=== PATIENT | male | born 1955 | race Caucasian/White ===

== ENCOUNTER 2017-08-29 06:57 | Day surgery (SDC) | payer OTHER ==
[2017-08-28 08:26] VITALS: BMI 24.4
[2017-08-29] MEDS ORDERED: CEFAZOLIN/Water 2 GM/20 ML SYRINGE ONE (07:19)
[2017-08-29 07:38] LABS: Hemoglobin 15.4 g/dL (14.0-18.0); Mean Corpuscular HGB CONC 32.8 g/dL (32.0-36.0); Mean Corpuscular Hemoglobin 31.4 pg (27.0-31.0); Mean Corpuscular Volume 95.8 fl (80.0-94.0); Mean Platelet Volume 7.6 fL (7.4-10.4); Platelet Count 218 thou/uL (130-400); Red Blood Cell (RBC) Count 4.89 mill/uL (4.70-6.10); White Blood Cell (WBC) Count 5.2 thou/uL (4.8-10.8)
[2017-08-29 07:53] LABS: Anion Gap 12 mmol/L (10-20); BUN (Urea Nitrogen) 14 mg/dL (8.4-25.7); Calc. Creatinine Clearance 108 mL/min (70-130); Calcium 9.1 mg/dL (7.8-10.44); Carbon Dioxide 25 mmol/L (22-29); Chloride 106 mmol/L (98-107); Estimated GFR-MDRD Greater than 90; Glucose 101 mg/dL (70-105); Potassium 4.1 mmol/L (3.5-5.1); Sodium 139 mmol/L (136-145)
[2017-08-29 07:55] LABS: Band 2 % (5-11); Eosinophils 5 % (0-10); Lymphocytes 24 % (21-51); MDiff Complete? YES; Monocytes 10 % (0-10); Neutrophil 54 % (42-75); RBC Morphology Normal; Reactive Lymphocytes 5 % (0-10)
[2017-08-29] MEDS ORDERED: Lidocaine 1% w/Epinephrine 1:200K 30 ML VIAL ONE (08:20)
[2017-08-29] MEDS ORDERED: Bupivacaine/Epinephrine 0.25% 30 ML VIAL ONE (08:20)
[2017-08-29] MEDS ORDERED: Midazolam HCl 2 mg/2 ml Vial ONE (08:20)
[2017-08-29] MEDS ORDERED: Fentanyl 100 MCG/2 ML VIAL ONE (08:31)
[2017-08-29] MEDS ORDERED: Ondansetron HCl/PF 4 MG/2 ML Vial ONE (13:59)
[2017-08-29] MEDS ORDERED: Dexamethasone 20 MG/5 ML VIAL ONE (13:59)
[2017-08-29] MEDS ORDERED: Ketorolac Tromethamine 30 MG/ML VIAL ONE (13:59)
[2017-08-29] MEDS ORDERED: PROPOFOL 200 MG/20 ML VIAL ONE (13:59)
--- NOTE | 2017-08-29 14:17 | EKG ---
Test Reason : PREOP Blood Pressure : / mmHG Vent. Rate : 071 BPM Atrial Rate : 071 BPM P-R Int : 136 ms QRS Dur : 088 ms QT Int : 400 ms P-R-T Axes : 002 065 056 degrees QTc Int : 434 ms Normal sinus rhythm Normal ECG When compared with ECG of 10-DEC-2012 10:17, No significant change was found Confirmed by DR. Natalie HORTA (3) on 08/29/2017 2:17:07 PM Referred By: ALYSSA Confirmed By:DR. Natalie HORTA
--- NOTE | 2017-08-29 18:50 | OP ---
DATE OF PROCEDURE: 08/29/2017 PREOPERATIVE DIAGNOSES: 1. Right carpal tunnel. 2. Right cubital tunnel. PROCEDURES PERFORMED: 1. Right open carpal tunnel release. 2. Right open carpal tunnel release. 3. Long arm splint. STAFF: Tanvir Guzman M.D. HEALTH EVALUATOR: None. ANESTHESIA: Dr. Dowd. The patient received a LMA. ESTIMATED BLOOD LOSS: Less than 20 mL TOURNIQUET TIME: 46 minutes at 250 mmHg. ANTIBIOTICS: Ancef 2 grams. IMPLANTS: None. COMPLICATIONS: None. HISTORY OF PRESENT ILLNESS: Mr. Ayala is a pleasant 62-year-old male presented to me with positive nerve conduction studies for cubital tunnel and numbness treating was last 3 fingers. 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 I discussed with patient the risks and benefits of right cubital tunnel, right carpal tunnel release to include pain, scar, bleeding, infection, damage to vital struc tures, decreased range of motion or strength, failure of procedure, continued pain despite surgical i ntervention. The patient understood these risks and benefits and elected to proceed. PROCEDURE NOTE: Time-out was performed designating the patient's right upper extremity as the operat kenneth site based on sight, consents, markings. At completion of timeout, the patient's right upper ext remity was prepped and draped in sterile fashion. Tourniquet was brought up and was left up for a to ludivina of 46 minutes. I began with my carpal tunnel incision and made an incision at radial aspect of f ourth ray from Morel's cardinal line distal and proximal down through skin and came into the palmar fascia, which was split and came into the fat, followed by the palmaris brevis, which was transected. We used hemostat and free of the nerve and sharp dissection and hemostat to protect the nerve and t ransected the transverse carpal ligament, sure there was complete release proximally and distally for the nerve to be completely decompressed. We then washed. We closed with 4-0 nylon horizontal mattr ess sutures. We then injected 10 mL of lidocaine 1% with epinephrine into the tunnel to help with pa in relief post-procedure. We then moved to the patient's elbow, made an incision on the medial aspec t, posterior elbow down through skin and found the triceps, isolated the ulnar nerve, dissected aroun d the ulnar nerve to complete its release, placed vessel loop to control the nerve, moved proximally to ensure the was freed completely; I noticed tenting of the intermuscular septum, which we rel eased to ensured no . I felt the nerve all the way up it is proximal arm, saw no other need for release. I then moved distally unroofed Butler and transected Butler's ligament and moved over an d opened the fascial band, opened the flexor carpi ulnaris muscle head. I did not cut any branches o ff the nerve distally, but open to ensured the release of the nerve distally. I then felt like it wa s freely released using 0 to take a portion of the Butler's ligament to sew the undersurface of the skin to help act as a sling. I then sewed subcu with 2-0 and 3-0 nylon. The patient was placed in a soft tissue dressing and long posterior arm splint. The patient will follow up with me in 10-14 days. The patient will follow up with me with splint in 1 week, begin range of motion of elbow, wrist, and hand. The patient will be wear his carpal tunnel splint. The patient will take hydrocodone as needed for pain.
== END 2017-08-29 08:15 | disposition home or self-care (01) ==
LOC: SDC 06:57
PROVIDERS: ATTEND Orthopaedic Surgery
PROC: 01N40ZZ Release Ulnar Nerve, Open Approach (ICD-10-PCS; principal; 2017-08-29)
PROC: 01N50ZZ Release Median Nerve, Open Approach (ICD-10-PCS; principal; 2017-08-29)
DX: G56.01 Carpal tunnel syndrome, right upper limb (principal); G56.21 Lesion of ulnar nerve, right upper limb; K21.9 Gastro-esophageal reflux disease without esophagitis; Z79.1 Long term (current) use of non-steroidal anti-inflammatories (NSAID); Z98.52 Vasectomy status; Z90.89 Acquired absence of other organs; Z98.890 Other specified postprocedural states
CPT/HCPCS: 36415; 80048; 85025; 93005; 93010; J1100; J1885; J2250; J2405; J2704; J3010

== ENCOUNTER 2017-12-04 08:57 | Outpatient (CLI) | payer OTHER ==
--- NOTE | 2017-12-04 12:03 | MRI ---
MRI LUMBAR SPINE WITHOUT CONTRAST: HISTORY: Lumbar radiculopathy. Left-sided sciatic pain radiating down the left leg. Symptoms intermittent fo r a few years. COMPARISON: None. TECHNIQUE: A lumbar spine MRI is performed without intravenous Gadolinium administration. Multisequential, mult iplanar imaging is performed. FINDINGS: Appropriate T1 marrow signal intensity of the lumbar vertebrae. Lumbar spine vertebral body height i s maintained. No fracture. No significant STIR hyperintensity to suggest edema or ligamentous injur y. There is 3 mm of anterolisthesis of L4 upon L5. Symmetric signal intensity of the psoas muscles. Appropriate signal intensity of the visualized lilly d organs. The conus medullaris terminates at the inferior endplate of L1. T12-L1: Adequate disk hydration. No significant central canal stenosis. The foramina are patent. L1-L2: Adequate disk hydration. No significant central canal stenosis or foraminal narrowing. L2-L3: Adequate disk hydration. No significant central canal stenosis. The foramina are patent. L3-L4: Adequate disk hydration. No significant posterior disk abnormality. No significant central canal stenosis. The neural foramina are patent. There is mild facet hypertrophy with fluid in both intraarticular facet joints. L4-L5: Desiccation with mild loss of disk space height. There is a generalized disk bulge, ligament um flavum thickening, and facet hypertrophy. There is resultant moderate central canal stenosis. Th ere is fluid in both intraarticular facet joints. Mild to moderate bilateral neural foraminal narrow ing. There is a 0.9 cm T2 hyperintense focus adjacent to the left intraarticular facet joint, compat ible with a synovial cyst. This synovial cyst causes mass effect and displacement of the traversing left L5 and S1 nerve roots. L5-S1: Desiccation with severe loss of disk space height. No significant stenosis of the thecal sac . Disk material encroaches upon both subarticular zones, left greater than right. Partial obscurati on of the traversing left S1 nerve root. No significant mass effect upon the traversing right S1 ner ve root. Moderate bilateral foraminal narrowing. Nonspecific T2 hyperintensity to the posterior right aspect of the L5 spinous process. IMPRESSION: 1. Degenerative changes of the lumbar spine, as above. 2. Synovial cyst at L4-L5, causing mass effect upon the traversing left L5 and S1 nerve roots. POS: SAMANTHA
--- NOTE | 2017-12-04 12:51 | CT ---
CT LUMBAR SPINE WITHOUT CONTRAST: HISTORY: Lumbar radiculopathy. Left sciatic pain. TECHNIQUE: Multiple axial tomograms obtained through the lumbar spine with multiplanar reconstruction. FINDINGS: The lumbar vertebrae maintain normal height and alignment. No evidence of spondylolisthesis or spond ylosis. Degenerative disk changes are seen at L4-L5 with gas in the disk space consistent with vacuu m phenomenon. There is loss of disk space at L5-S1. Mild degenerative osteophytes are seen, most pr ominent at L4-L5 and at L5-S1. At L1-L2, no disk bulge or protrusion. No central canal or foraminal stenosis. At L2-L3, mild diffuse disk bulge flattens the thecal sac. Mild facet arthrosis. Mild central canal stenosis. At L3-L4, mild diffuse disk bulge. Mild facet hypertrophy. Mild to moderate central canal stenosis. At L4-L5, loss of disk space with degenerative disk change. Diffuse disk bulge. Facet hypertrophy i s prominent. There is evidence of a posterior laminectomy on the right. These hypertrophic changes and disk bulge result in severe central canal stenosis. Bilateral foraminal narrowing due to the bro ad-based disk bulge and facet hypertrophy. At L5-S1, loss of disk space. Mild disk bulge. Mild central canal stenosis. Bilateral foraminal na rrowing due to facet hypertrophy and spurring from the L5-S1 vertebra. IMPRESSION: 1. Degenerative disk changes at multiple levels, as described above. 2. Severe central canal stenosis at L4-L5, as described. POS: SAMANTHA
== END 2017-12-04 08:58 | disposition home or self-care (01) ==
LOC: TBSIIMAG 08:57
PROVIDERS: ATTEND Surgery
DX: M47.26 Other spondylosis with radiculopathy, lumbar region (principal); M48.061 Spinal stenosis, lumbar region without neurogenic claudication; M71.38 Other bursal cyst, other site
CPT/HCPCS: 72131; 72148

== ENCOUNTER 2017-12-31 06:12 | Inpatient (IN) | payer OTHER ==
[2017-12-30 09:43] VITALS: BMI 25.7
[2017-12-31] MEDS ORDERED: Thrombin 5000 UNITS/5 ML VIAL ONE ×2 (06:27→11:11)
[2017-12-31] MEDS ORDERED: Sodium Chloride 0.9% 10 ML ONE (06:27)
[2017-12-31] MEDS ORDERED: Bacitracin Zinc Ointment 30 gm TUBE ONE (06:27)
[2017-12-31] MEDS ORDERED: Fentanyl 100 MCG/2 ML VIAL ONE ×3 (06:39→13:24)
[2017-12-31 07:09] LABS: Hemoglobin 14.8 g/dL (14.0-18.0); Mean Corpuscular HGB CONC 33.4 g/dL (32.0-36.0); Mean Corpuscular Hemoglobin 31.4 pg (27.0-31.0); Mean Corpuscular Volume 93.8 fl (80.0-94.0); Mean Platelet Volume 7.3 fL (7.4-10.4); Platelet Count 226 thou/uL (130-400); White Blood Cell (WBC) Count 5.3 thou/uL (4.8-10.8)
[2017-12-31] MEDS ORDERED: Phenylephrine HCL 10 MG/ML VIAL ONE (07:14)
[2017-12-31] MEDS ORDERED: Famotidine/PF 20 mg/2ml Vial ONE (07:14)
[2017-12-31 07:17] LABS: Prothrombin Time 13.4 SEC (12.0-14.7)
[2017-12-31 07:18] LABS: PTT 28.3 SEC (22.9-36.1)
[2017-12-31] MEDS ORDERED: Midazolam HCl 2 mg/2 ml Vial ONE (07:24)
[2017-12-31] MEDS ORDERED: CEFAZOLIN/Water 2 GM/20 ML SYRINGE ONE (07:24)
[2017-12-31 07:30] LABS: Anion Gap 12 mmol/L (10-20); BUN (Urea Nitrogen) 15 mg/dL (8.4-25.7); Calc. Creatinine Clearance 114 mL/min (70-130); Calcium 8.8 mg/dL (7.8-10.44); Carbon Dioxide 22 mmol/L (22-29); Chloride 107 mmol/L (98-107); Estimated GFR-MDRD Greater than 90; Glucose 95 mg/dL (70-105); Potassium 3.9 mmol/L (3.5-5.1); Sodium 137 mmol/L (136-145)
[2017-12-31] MEDS ORDERED: Ondansetron HCl/PF 4 MG/2 ML Vial ONE ×2 (11:08→16:26)
[2017-12-31] MEDS ORDERED: Promethazine HCl 25 MG/ML VIAL IM PRN ×2 (11:23→12:48)
[2017-12-31] MEDS ORDERED: Promethazine HCl 25 MG/ML VIAL SLOW IVP PRN (11:23)
[2017-12-31] MEDS ORDERED: Ondansetron HCl/PF 4 MG/2 ML Vial IVP PRN (11:23)
[2017-12-31] MEDS ORDERED: Meperidine HCl/PF 25 MG/ML VIAL SLOW IVP PRN (11:23)
[2017-12-31] MEDS ORDERED: Morphine Sulfate 2 MG/ML SYRINGE SLOW IVP PRN (11:23)
[2017-12-31] MEDS ORDERED: HYDROmorphone 2 MG/ML VIAL SLOW IVP PRN (11:23)
[2017-12-31] MEDS ORDERED: HYDROmorphone 0.5 MG/0.5 ML SYRINGE ONE ×3 (12:01→13:07)
[2017-12-31] MEDS ORDERED: Mag-Al 1200 mg/1200 mg/30 ML UDCUP PO PRN (12:48)
[2017-12-31] MEDS ORDERED: HYDROcodone/Acetaminophen 7.5/325 mg Tablet PO PRN (12:48)
[2017-12-31] MEDS ORDERED: Bisacodyl 10 MG SUPP PR PRN (12:48)
[2017-12-31] MEDS ORDERED: Acetaminophen 325 MG TAB PO PRN (12:48)
[2017-12-31] MEDS ORDERED: Fleet Enema 133 ML BOT PR PRN (12:48)
[2017-12-31] MEDS ORDERED: Milk Of Magnesia 30 ML UDCUP PO PRN (12:48)
[2017-12-31] MEDS: Sodium Chloride 0.9% 1,000 ML IV SCH (15:32)
[2017-12-31] MEDS: tiZANidine HCl 4 MG TAB PO PRN (16:00)
[2017-12-31] MEDS: traMADol HCl 50 MG TAB PO PRN (16:00)
[2017-12-31] MEDS: CEFAZOLIN/Water 2 GM/20 ML SYRINGE SLOW IVP SCH (16:01)
[2017-12-31] MEDS ORDERED: Lidocaine 1% PF 5 ML VIAL ONE ×2 (16:26)
[2017-12-31] MEDS ORDERED: PROPOFOL 200 MG/20 ML VIAL ONE (16:26)
[2017-12-31] MEDS ORDERED: PHENYLEPHRINE-NS 100 MCG/ML 10 ML SYRINGE ONE (16:26)
--- NOTE | 2017-12-31 16:27 | EKG ---
Test Reason : PREOP Blood Pressure : / mmHG Vent. Rate : 059 BPM Atrial Rate : 059 BPM P-R Int : 158 ms QRS Dur : 094 ms QT Int : 428 ms P-R-T Axes : 062 069 046 degrees QTc Int : 423 ms Sinus bradycardia Otherwise normal ECG When compared with ECG of 29-AUG-2017 07:23, No significant change was found Confirmed by DR. Natalie HORTA (3) on 12/31/2017 4:27:04 PM Referred By: ADRIANA Confirmed By:DR. Natalie HORTA
--- NOTE | 2017-12-31 16:37 | OP ---
LOCATION: OR 12. TYPE 1 WOUND. SURGEON: Lalito Basurto M.D. PAINT ROLLER WINDER: Zen Mckeon PA-C. PREPROCEDURE DIAGNOSIS: Grade I spondylolisthesis with history of right L4-L5 synovial cyst, resecti on and foraminotomy, now with left L4-L5 synovial cyst with low back and leg pain. PROCEDURES: 1. Left L4-L5 synovial cyst resection. 2. Revision of right L4-L5 decompression with diskectomy and interbody graft placement for arthrodes is with placement of PEEK spacer packed with local bone autograft obtained on same incision and BMP. 3. Screw raul fixation at L4-L5 bilaterally for stabilization. 4. Posterolateral fusion bilaterally L4-L5 with local bone autograft obtained on same incision, BMP and demineralized bone matrix. DESCRIPTION OF PROCEDURE: After informed consent was obtained from the patient, the patient brought to OR 12. Proper patient pause and identification was carried out. He was placed under excellent ge neral endotracheal anesthesia and positioned prone on the operating table. All appropriate points we re padded. We identified the L4-L5 segment, the prior wound, this was slightly eccentric to the righ t. This region was sterilely cleansed, prepared, and draped. Proper patient pause and identificatio n was carried out. The wound was then opened with a combination of sharp, monopolar and blunt dissec tion. The L4-L5 segments were exposed along with the scarred region in the right L4-L5 segment from the prior surgery. The transverse processes and facet complexes were also exposed and we were please d with our exposure at that point. Localization film confirmed our area of interest. We then perfor med a L4-L5 decompression with removal of the left L4-L5 synovial cyst and assured freedom of the lef t L4 and left L5 nerve roots. We then turned our attention to the right L4-L5 segment, identified sc ar tissue. Right L4-L5 segment was decompressed and disk material identified. The disk was then rem ermelinda and careful protection of the dural tube allowed for entry into the disk space. A diskectomy wa s performed and using a series of curettes and rongeurs were exposed the endplates at the inferior L4 and the superior endplate of L5. An interbody spacer of appropriate dimension was placed, packed wi th BMP and local bone autograft obtained from same incision, and this was for arthrodesis. We then t urned our attention to placement of screw arul fixation and pedicle screws at L4 and L5 were placed wi th satisfactory purchase of the bone, both fluoroscopy and spin CT demonstrates satisfactory placemen t of the hardware and interbody spacer. Rods were then placed and final tightening occurred. The wo und was then copiously irrigated. DuraSeal was placed over the dural tube to protect it from many ir ritations from the fusion process. Hemostasis was maximized throughout. Decortication in the transv erse processes also occurred for arthrodesis in the posterior lateral regions. BMP and local bone au tograft along with demineralized bone matrix was all placed out laterally in the posterior lateral gu tters to augment the fusion process. Rods again will be placed. Cap screws placed and final tighten ing occurred. The wound was then closed following meticulous hemostasis throughout and it was closed in anatomic layers following the sprinkling of vancomycin powder. The patient then emerged from ane sthesia.
[2017-12-31] MEDS: Morphine 4 MG/ML VIAL SLOW IVP PRN ×3 (17:02→21:12)
[2017-12-31] MEDS: Acetaminophen/Codeine 30-300mg Tablet PO PRN ×2 (18:09→21:28)
[2018-01-01] MEDS: Acetaminophen/Codeine 30-300mg Tablet PO PRN ×7 (00:08→21:10)
[2018-01-01] MEDS: Morphine 4 MG/ML VIAL SLOW IVP PRN ×3 (00:09→08:01)
[2018-01-01] MEDS: CEFAZOLIN/Water 2 GM/20 ML SYRINGE SLOW IVP SCH ×3 (00:10→16:03)
[2018-01-01] MEDS: Sodium Chloride 0.9% 1,000 ML IV SCH ×2 (02:41→17:45)
[2018-01-01] MEDS: tiZANidine HCl 4 MG TAB PO PRN ×4 (03:29→22:01)
[2018-01-01] MEDS ORDERED: Tamsulosin HCl 0.4 MG CAP PO SCH (10:15)
--- NOTE | 2018-01-01 19:42 | PRG ---
DATE OF SERVICE: 01/01/2018 Zen Mckeon PA-C dictating for Dr. Lalito Basurto. POSTOPERATIVE RECHECK Mr. Ayala is now postoperative day #1 having undergone L4-L5 posterior lumbar laminectomy and poste rior fusion with interbody graft. The patient's only complaint today is the back pain. He does note , however, he got up more than 6 times last night, which may have increased his back pain. He has no bilateral lower extremity symptoms including complete resolution of his pain. He has been compliant in wearing his LSO brace when he is out of bed. He has had some difficulty with urinary retention, so we will order Flomax. I have also changed his pain medication from [place] to Tylenol No. 3 as he s tates that this causes less drowsiness. He has good strength in the bilateral lower extremities and walks with a non-antalgic gait. He has intact sensation to light touch throughout. Right now, we wi ll continue to monitor the patient's back pain, although I suspect that he has overdone his activity postoperatively. Hopefully, he will be ready for discharge tomorrow. We will continue to monitor the patient's postoperative symptoms, although likely he will be ready fo r discharge tomorrow. Again, I suspect that his postoperative pain is due to overactivity and both t he patient and his are pleased with his outcome at this time.
[2018-01-02] MEDS: Acetaminophen/Codeine 30-300mg Tablet PO PRN ×2 (00:04→03:05)
[2018-01-02] MEDS: traMADol HCl 50 MG TAB PO PRN (04:12)
[2018-01-02] MEDS: tiZANidine HCl 4 MG TAB PO PRN (04:12)
[2018-01-02] MEDS: Sodium Chloride 0.9% 1,000 ML IV SCH (05:07)
[2018-01-02 08:48] VITALS: BP 108/72; TEMP 98.1
--- NOTE | 2018-01-02 17:44 | DIS ---
DATE OF ADMISSION: 12/31/2017 DATE OF DISCHARGE: 01/02/2018 DISCHARGE DIAGNOSES: 1. Lumbar spondylolisthesis. 2. Lumbar stenosis. 3. Lumbar radiculopathy. 4. Tobacco abuse. HOSPITAL COURSE: Mr. Ayala was admitted on 12/31/2017 to undergo an L4-L5 laminectomy with posteri or lumbar interbody graft and fusion. The patient tolerated the procedure well and his surgery was w ithout complication. He recovered on the surgical floor for 2 overnight stays. His only complaint w as low back pain at the incision site, though does note may be too much activity postoperatively. He did have some slowed stream of urine and was given Flomax, so he stated this did not improve signifi cantly, although he was having difficulty with this preoperatively. At the physical exam at the time of discharge, the patient had full strength in the bilateral lower extremities with intact sensation to light touch throughout. He walks with a non-antalgic gait. He was in a well-fitting LSO brace. Appropriate prescriptions were given to the patient. Appropriate patient education and postoperativ e followup information was also given to the patient. At the time of discharge, the patient was very pleased with his outcome postoperatively and doing well. He understood to call the office with michellet ivett doran prior to his next followup appointment.
== END 2018-01-02 10:52 | disposition home or self-care (01) | DRG 455 ==
LOC: SURG A 06:12
PROVIDERS: ADMIT Surgery; ATTEND Surgery
PROC: 0SG00AJ Fusion of Lumbar Vertebral Joint with Interbody Fusion Device, Posterior Approach, Anterior Column, Open Approach (ICD-10-PCS; principal; 2017-12-31)
PROC: 0SG0071 Fusion of Lumbar Vertebral Joint with Autologous Tissue Substitute, Posterior Approach, Posterior Column, Open Approach (ICD-10-PCS; 2017-12-31)
PROC: 0ST20ZZ Resection of Lumbar Vertebral Disc, Open Approach (ICD-10-PCS; 2017-12-31)
PROC: 0SB00ZZ Excision of Lumbar Vertebral Joint, Open Approach (ICD-10-PCS; 2017-12-31)
DX: M48.061 Spinal stenosis, lumbar region without neurogenic claudication (principal); M43.16 Spondylolisthesis, lumbar region; M71.30 Other bursal cyst, unspecified site; M54.16 Radiculopathy, lumbar region; F17.210 Nicotine dependence, cigarettes, uncomplicated; M71.38 Other bursal cyst, other site
CPT/HCPCS: 36415; 76001; 80048; 85027; 85610; 85730; 93005; 93010; A4216; C1713; C1768; G8978-GP-CI; G8979-GP-CI; G8980-GP-CI; J0131; J1170; J2001; J2250; J2270; J2370; J2405; J2704; J3010; J3370; J3490; S0028

== ENCOUNTER 2018-01-04 13:31 | Emergency (ER) | payer OTHER ==
--- NOTE | 2018-01-04 15:14 | ULT ---
RIGHT LOWER EXTREMITY VENOUS DUPLEX EXAM: Date: 01/04/18 Ultrasound and color Doppler with spectral analysis and compression studies performed on the veins of the right lower extremity. INDICATION: Right lower extremity pain and edema. FINDINGS: Veins of the right lower extremity show normal blood flow and compression. No evidence of deep venous thrombosis. IMPRESSION: Negative right lower extremity venous duplex study. POS: ANTON
--- NOTE | 2018-01-04 23:46 | CON ---
DATE OF CONSULTATION: 01/04/2018 Zen Mckeon PA-C, dictating for Lalito Basurto M.D. This is a 30-minute initial patient consult, in which greater than 50% of the exam was spent in couns eling and coordinating patient's care. Remainder of the exam was spent in review of patient's medica l records and appropriate studies. HISTORY OF PRESENT ILLNESS: Mr. Ayala is now postoperative day #4, having undergone L4-L5 posterio r lumbar fusion with interbody grafting. The patient was experiencing fever around 105 degrees [place] nheit and presented to his primary care office today. He was also complaining of some leg swelling, though states he has had no increased pain at his incision site or radicular pain into the legs. He states the fever had been going on since last night and that he has been doing quite a bit of walking . His has noticed some drainage on the bandage that she changes daily. Otherwise, the patient denies any tenderness to palpation at the incision site or any difficulty or any increased pain. He states overall he is feeling good and has been able to walk quite a bit with his LSO brace. His main concern today is swelling into the legs. PHYSICAL EXAMINATION: The patient is awake, alert, and appropriate. He does not appear to be septic in any way. His GCS currently is 15. He has excellent strength in all his extremities. He has a m inor amount of trace swelling into the bilateral lower extremities. He has no surrounding erythema a nd no tenderness to palpation into the bilateral legs throughout. His incision is clean, dry, intact and covered with the dressing. When uncovered, there is no active drainage. There does not appear to be any surrounding erythema. There is no odor to the incision a nd there is no color to the dressing that is on the bandage that was examined by me when the EMS prov iders change his dressing. There does not appear to be any extra swelling, or signs of infection, ob vious infection at this point. IMPRESSION AND DIAGNOSES: 1. Bilateral lower extremity leg swelling. 2. Status post L4-L5 posterior lumbar interbody fusion with Dr. Basurto 4 days ago. PLAN: I discussed the patient's case with Dr. Basurto. At this time, we will have the ER order an ul trasound of bilateral lower extremities to make sure the patient does not have any bilateral DVTs. T he most common cause postoperative fever is atelectasis and I have asked the ER to provide the patien t with incentive spirometer that he may use this while he is at home. I have warned him not to overd o his activity, but to continue to wear his brace and continued to keep the incision covered. He may cover at night as well, but I have relayed to him that I do not in any way suspect that his incision is infected. Again, this was also discussed with Dr. Basurto and we are okay with discharge home fro m the ER with a follow up in our clinic as scheduled. Ample opportunity was given to the patient to discuss his questions and concerns and he was pleased with the workup at this time. It should be noted that the ultrasound of the bilateral lower extremities was negative and therefore we will send the patient home from the ER with continue follow up in our office.
== END 2018-01-04 15:18 | disposition home or self-care (01) ==
LOC: ERS 13:31
DX: M96.89 Other intraoperative and postprocedural complications and disorders of the musculoskeletal system (principal); K21.9 Gastro-esophageal reflux disease without esophagitis; F17.220 Nicotine dependence, chewing tobacco, uncomplicated; Z79.899 Other long term (current) drug therapy
CPT/HCPCS: 93970

== ENCOUNTER 2018-02-12 09:01 | Outpatient (CLI) | payer OTHER ==
--- NOTE | 2018-02-12 10:15 | RAD ---
LUMBAR SPINE SERIES TWO VIEWS: History: Low back pain. FINDINGS: Vertebral bodies are normal in height. There is marked disc narrowing at L5-S1. Bilateral pedicle scr ews have been placed at L4-5 with laminectomy change. Markers of the disc implant are in the confines of the disc level. The bones are demineralized. IMPRESSION: Arthritic changes and post op changes of the spine. POS: SAMANTHA
== END 2018-02-12 09:02 | disposition home or self-care (01) ==
LOC: TBSIIMAG 09:01
DX: M54.5 Low back pain (principal); M47.896 Other spondylosis, lumbar region; Z98.890 Other specified postprocedural states
CPT/HCPCS: 72100

== ENCOUNTER 2018-05-06 09:37 | Outpatient (CLI) | payer OTHER ==
[2018-05-06 10:24] LABS: Estimated GFR-MDRD - POC Greater than 90
--- NOTE | 2018-05-06 11:25 | MRI ---
MRI OF THE LEFT KNEE WITH AND WIHTOUT CONTRAST: INDICATION: Concern for a soft tissue mass of the left knee that has been present for 3-4 months now causing pain . TECHNIQUE: Multiplanar, multisequence MR images were obtained of the left knee with and without IV contrast. 20 cc of MultiHance was utilized for the exam. No radiographic comparisons are available. FINDINGS: A surface marker is placed over the palpable region of interest overlying the anterolateral aspects o f the proximal foreleg. There is a multiloculated T2 hyperintense, T1 hypointense mass lesion extend ing from the superior and anterior aspects of the proximal tibiofibular joint underlying the surface marker. This measures 2.1 x 2.6 x 1.4 cm in its greatest mediolateral, AP, and craniocaudad dimensio ns respectively. There are some moderate degenerative changes involving the proximal tibiofibular nash int. There is a subchondral cyst-like abnormality involving the proximal fibular head adjacent to th e anterior subarticular surface of the proximal tibiofibular joint. A small effusion is present with in the proximal tibiofibular joint. The lesion overlying the anterior and lateral aspect of the prox imal tibiofibular joint demonstrates some mild peripheral enhancement and is consistent with a promin ent ganglion. There is some mild enhancement of the periarticular soft tissues of the proximal tibio fibular joint indicative of some inflammation within this region. There is diffuse moderate to prominent chondral thinning involving the femorotibial compartments with small marginal osteophytes. There is a vertically oriented radial tear involving the posterior junc tion, posterior body, and posterior horn of the medial meniscus with partial medial extrusion. There is a horizontally oriented tear involving the lateral meniscal body as well as the posterior horn of the lateral meniscus. There is mild chondrosis involving the patellofemoral compartment. There are areas of focal full-thi ckness narrowing involving the posterior aspect of the lateral femoral condyle. The ACL, PCL, MCL, and LCLC are intact. The extensor mechanism is intact. IMPRESSION: 1. Mild osteoarthrosis of the left knee. 2. 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 3. Medial and lateral meniscal tears. POS: [facility]
== END 2018-05-06 09:38 | disposition home or self-care (01) ==
LOC: TBSIIMAG 09:37
PROVIDERS: ATTEND Orthopaedic Surgery
DX: M25.562 Pain in left knee (principal); M25.862 Other specified joint disorders, left knee; M17.12 Unilateral primary osteoarthritis, left knee; M67.462 Ganglion, left knee; S83.242A Other tear of medial meniscus, current injury, left knee, initial encounter; S83.282A Other tear of lateral meniscus, current injury, left knee, initial encounter
CPT/HCPCS: 82565

== ENCOUNTER 2021-01-31 13:17 | Outpatient (CLI) | payer BC ==
[2021-01-31 14:59] LABS: Anion Gap 13 mmol/L (10-20); BUN (Urea Nitrogen) 13 mg/dL (8.4-25.7); Calc. Creatinine Clearance 0 mL/min (70-130); Calcium 9.1 mg/dL (7.8-10.44); Carbon Dioxide 22 mmol/L (23-31); Chloride 107 mmol/L (98-107); Glucose 93 mg/dL (80-115); Potassium 4.2 mmol/L (3.5-5.1); Sodium 138 mmol/L (136-145)
[2021-01-31 15:07] LABS: #Basophils 0.1 10x3/uL (0.0-0.2); #Eosinphils 0.1 10x3/uL (0.0-0.5); #Monocytes 0.8 10x3/uL (0.0-1.1); #Neutrophils 3.4 10x3/uL (1.5-8.4); %Eosinophils 1.7 % (0.0-6.0); %Lymphocytes 24.4 % (18.0-47.0); %Monocytes 13.5 % (0.0-10.0); %Neutrophils 59.2 % (40.0-75.0); Hemoglobin 13.2 g/dL (13.5-17.5); Mean Corpuscular HGB CONC 31.7 g/dL (32.0-36.0); Mean Corpuscular Hemoglobin 28.5 pg (27.0-33.0); Mean Corpuscular Volume 89.8 fl (81.2-95.1); Mean Platelet Volume 9.4 fl (7.4-10.4); Platelet Count 329 10x3/uL (150-450); RBC Distribution Width 14.7 % (11.5-14.5); Red Blood Cell (RBC) Count 4.63 10x6/uL (4.32-5.72); White Blood Cell (WBC) Count 5.8 10x3/uL (3.5-10.5)
[2021-01-31 15:11] LABS: INR-International Normal Ratio 0.9; PTT 26.8 sec (22.0-33.0); Prothrombin Time 10.5 sec (9.5-12.1)
[2021-02-01 09:46] LABS: SARS-CoV-2 NAA Rapid Test Not Detected (NotDetected)
== END 2021-01-31 13:18 | disposition home or self-care (01) ==
LOC: LABBT 13:17
PROVIDERS: ATTEND Surgery
DX: Z01.818 Encounter for other preprocedural examination (principal); M48.062 Spinal stenosis, lumbar region with neurogenic claudication; M54.16 Radiculopathy, lumbar region; Z20.822 Contact with and (suspected) exposure to COVID-19
CPT/HCPCS: 80048; 85025; 85610; 85730; 93005; 93010; U0002; U0005

== ENCOUNTER 2021-02-03 06:02 | Day surgery (SDC) | payer BC ==
[2021-02-03] MEDS ORDERED: Thrombin 5000 UNITS/5 ML VIAL ONE (06:37)
[2021-02-03] MEDS ORDERED: Fentanyl 250 MCG/5 ML VIAL ONE (07:05)
[2021-02-03] MEDS ORDERED: PROPOFOL 200 MG/20 ML VIAL ONE (07:58)
[2021-02-03] MEDS ORDERED: Lidocaine 1% PF 5 ML VIAL ONE (07:58)
[2021-02-03] MEDS ORDERED: ePHEDrine Sulfate 50 MG/10 ML VIAL ONE (07:58)
[2021-02-03] MEDS ORDERED: Rocuronium Bromide 10 MG/ML (10ML VIAL) ONE (07:58)
[2021-02-03] MEDS ORDERED: Dexamethasone 20 MG/5 ML VIAL ONE (07:58)
[2021-02-03] MEDS ORDERED: Ketorolac Tromethamine 30 MG/ML VIAL ONE (07:58)
[2021-02-03] MEDS ORDERED: Glycopyrrolate 0.2 MG/ML 5 ML SYRINGE ONE (07:58)
[2021-02-03] MEDS ORDERED: Ondansetron PF 4 MG/2 ML Vial ONE (07:58)
[2021-02-03] MEDS ORDERED: Acetaminophen/Codeine 30-300mg Tablet PO PRN (09:54)
[2021-02-03] MEDS ORDERED: HYDROcodone/Acetaminophen 7.5/325 mg Tablet PO PRN (09:54)
[2021-02-03] MEDS ORDERED: Acetaminophen 325 MG TAB PO PRN (09:54)
[2021-02-03] MEDS ORDERED: Morphine 2 MG/ML VIAL SLOW IVP PRN (09:54)
[2021-02-03] MEDS ORDERED: hydrALAZINE 20 MG/ML VIAL SLOW IVP PRN ×3 (09:57→17:42)
[2021-02-03] MEDS ORDERED: Fentanyl 100 MCG/2 ML VIAL ONE ×3 (10:04→14:37)
[2021-02-03] MEDS ORDERED: HYDROmorphone 2 MG/ML VIAL ONE (10:32)
[2021-02-03] MEDS ORDERED: CEFAZOLIN 2 GM in Premix Bag 1 BAG IVPB SCH (14:00)
[2021-02-03] MEDS: Gabapentin 300 MG CAP PO SCH ×2 (15:43→22:24)
[2021-02-03] MEDS: traMADol HCl 50 MG TAB PO PRN ×2 (15:43→22:25)
[2021-02-03] MEDS: tiZANidine HCl 4 MG TAB PO PRN (15:43)
[2021-02-03] MEDS: Sodium Chloride 0.9% 1,000 ML IV SCH ×2 (16:05→17:07)
[2021-02-03] MEDS: CEFAZOLIN 2 GM in Premix Bag 1 BAG IVPB SCH (17:07)
[2021-02-03 18:41] VITALS: BMI 27.7
[2021-02-04] MEDS: CEFAZOLIN 2 GM in Premix Bag 1 BAG IVPB SCH (00:10)
[2021-02-04] MEDS: tiZANidine HCl 4 MG TAB PO PRN (00:10)
[2021-02-04 04:01] VITALS: TEMP 98.1
[2021-02-04] MEDS: Gabapentin 300 MG CAP PO SCH (05:53)
[2021-02-04] MEDS: traMADol HCl 50 MG TAB PO PRN (05:54)
[2021-02-04 08:39] VITALS: BP 128/80
== END 2021-02-04 11:02 | disposition home or self-care (01) ==
LOC: SDC 06:02 → SURG A 09:54 → SDC 02-04 11:02
PROVIDERS: ATTEND Surgery
PROC: 01NB0ZZ Release Lumbar Nerve, Open Approach (ICD-10-PCS; principal; 2021-02-04)
DX: M48.062 Spinal stenosis, lumbar region with neurogenic claudication (principal); M54.16 Radiculopathy, lumbar region; K21.9 Gastro-esophageal reflux disease without esophagitis; Z79.899 Other long term (current) drug therapy
CPT/HCPCS: 76000; J0690; J1100; J1170; J1885; J2405; J2704; J3010; J3370

== ENCOUNTER 2021-07-07 07:34 | Outpatient (CLI) | payer BC ==
[2021-07-07 09:38] LABS: Hemoglobin 14.4 g/dL (13.5-17.5); Mean Corpuscular HGB CONC 31.7 g/dL (32.0-36.0); Mean Corpuscular Hemoglobin 28.3 pg (27.0-33.0); Mean Corpuscular Volume 89.4 fl (81.2-95.1); Mean Platelet Volume 10.1 fl (7.4-10.4); Platelet Count 241 10x3/uL (150-450); RBC Distribution Width 14.8 % (11.5-14.5); Red Blood Cell (RBC) Count 5.08 10x6/uL (4.32-5.72); White Blood Cell (WBC) Count 5.1 10x3/uL (3.5-10.5)
[2021-07-07 09:50] LABS: INR-International Normal Ratio 0.9; Prothrombin Time 10.3 sec (9.5-12.1)
[2021-07-07 09:54] LABS: Anion Gap 15 mmol/L (10-20); BUN (Urea Nitrogen) 15 mg/dL (8.4-25.7); Calc. Creatinine Clearance 0 mL/min (70-130); Calcium 9.1 mg/dL (7.8-10.44); Carbon Dioxide 25 mmol/L (23-31); Chloride 105 mmol/L (98-107); Glucose 95 mg/dL (80-115); Potassium 4.5 mmol/L (3.5-5.1); Sodium 140 mmol/L (136-145)
[2021-07-07 10:05] LABS: MDiff Complete? YES; Manual Diff?? YES
[2021-07-07 10:10] LABS: Band 2 % (5-11); Eosinophils 3 % (0-10); Lymphocytes 13 % (21-51); Monocytes 17 % (0-10); Neutrophil 57 % (42-75); Platelet Morphology Comment Appears Adequate; Reactive Lymphocytes 7 % (0-10)
[2021-07-07 18:04] LABS: SARS-CoV-2 PCR by NAA Not Detected (NotDetected)
== END 2021-07-07 07:35 | disposition home or self-care (01) ==
LOC: LABBT 07:34
PROVIDERS: ATTEND Orthopaedic Surgery
DX: Z01.818 Encounter for other preprocedural examination (principal); M16.11 Unilateral primary osteoarthritis, right hip; Z20.822 Contact with and (suspected) exposure to COVID-19
CPT/HCPCS: 80048; 85025; 85610; 87081; 93005; 93010; U0003; U0005

== ENCOUNTER 2021-07-12 05:32 | Inpatient (IN) | payer BC ==
[2021-07-12] MEDS ORDERED: Tranexamic Acid 1,000 MG/10 ML VIAL ONE (05:46)
[2021-07-12] MEDS ORDERED: Sodium Chloride 0.9% 100 ML ONE (05:46)
[2021-07-12] MEDS ORDERED: Vancomycin 1.5 GRAM/300 ML BAG 1.5 GM in Premix Bag 1 BAG IVPB SCH (06:00)
[2021-07-12] MEDS ORDERED: Midazolam HCl 2 mg/2 ml Vial ONE (06:51)
[2021-07-12] MEDS ORDERED: Fentanyl 100 MCG/2 ML VIAL ONE ×2 (06:51→07:27)
[2021-07-12] MEDS ORDERED: diphenhydrAMINE 25 MG CAP PO PRN ×2 (07:23→10:30)
[2021-07-12] MEDS ORDERED: Promethazine HCl 25 MG/ML VIAL IM PRN ×3 (07:23→10:30)
[2021-07-12] MEDS ORDERED: HYDROcodone/Acetaminophen 10/325 mg Tablet PO PRN ×2 (07:23)
[2021-07-12] MEDS ORDERED: Ondansetron PF 4 MG/2 ML Vial IVP PRN ×2 (07:23→10:30)
[2021-07-12] MEDS ORDERED: Acetaminophen 325 MG TAB PO PRN ×2 (07:23→10:28)
[2021-07-12] MEDS ORDERED: Zolpidem Tartrate 5 MG TAB PO PRN ×2 (07:23→10:30)
[2021-07-12] MEDS ORDERED: traMADol HCl 50 MG TAB PO PRN ×3 (07:23→10:30)
[2021-07-12] MEDS ORDERED: Fentanyl 100 MCG/2 ML VIAL SLOW IVP PRN ×2 (07:23)
[2021-07-12] MEDS ORDERED: Famotidine/PF 20 mg/2ml Vial ONE (07:27)
[2021-07-12] MEDS ORDERED: Bupivacaine 0.25% HCL 30 ML VIAL ONE (07:30)
[2021-07-12] MEDS ORDERED: Glycopyrrolate 0.2 MG/ML 5 ML SYRINGE ONE (07:40)
[2021-07-12] MEDS ORDERED: Rocuronium Bromide 10 MG/ML (10ML VIAL) ONE (07:40)
[2021-07-12] MEDS ORDERED: PROPOFOL 200 MG/20 ML VIAL ONE (07:40)
[2021-07-12] MEDS ORDERED: Lidocaine 1.5% w/Epi 1:200K 30 ML VIAL (Epid Use) ONE (07:40)
[2021-07-12] MEDS ORDERED: PHENYLEPHRINE-NS 100 MCG/ML 10 ML SYRINGE ONE (07:40)
[2021-07-12] MEDS ORDERED: ePHEDrine 50 MG/ML VIAL ONE (07:40)
[2021-07-12] MEDS ORDERED: Ondansetron PF 4 MG/2 ML Vial ONE (07:40)
[2021-07-12] MEDS ORDERED: Ketorolac Tromethamine 30 MG/ML VIAL ONE (07:40)
[2021-07-12] MEDS ORDERED: Dexamethasone 20 MG/5 ML VIAL ONE (07:40)
[2021-07-12] MEDS ORDERED: Lidocaine 1% PF 5 ML VIAL ONE (07:40)
[2021-07-12] MEDS ORDERED: Meperidine HCl/PF 25 MG/ML VIAL SLOW IVP PRN (09:08)
[2021-07-12] MEDS ORDERED: Ondansetron HCl/PF 4 MG/2 ML Vial IVP PRN (09:08)
[2021-07-12] MEDS ORDERED: Promethazine HCl 25 MG/ML VIAL IVPB PRN (09:08)
[2021-07-12] MEDS ORDERED: HYDROmorphone 2 MG/ML VIAL SLOW IVP PRN (09:08)
[2021-07-12] MEDS ORDERED: Hydrocerin (Eucerin) Cream 120 gm Jar TOP PRN (10:30)
[2021-07-12] MEDS ORDERED: Promethazine HCl 25 MG SUPP PR PRN (10:30)
[2021-07-12] MEDS ORDERED: Naloxone HCl 0.4 mg/ml Vial IVP PRN (10:30)
[2021-07-12] MEDS ORDERED: HYDROcodone/Acetaminophen 5/325 mg Tablet PO PRN ×2 (10:30)
[2021-07-12] MEDS ORDERED: diphenhydrAMINE 50 MG/ML VIAL IM PRN (10:30)
[2021-07-12] MEDS ORDERED: Bupivacaine 0.25% 10 ML VIAL EPIDURAL PRN (10:30)
[2021-07-12] MEDS ORDERED: Naloxone HCl 0.4 mg/ml Vial IV PRN (10:30)
[2021-07-12] MEDS: Dextrose 5 %-0.45 % NaCl 1,000 ML IV SCH ×2 (11:43→18:52)
[2021-07-12] MEDS: Ferrous Gluconate 324 MG TAB PO SCH ×2 (11:43→20:00)
[2021-07-12] MEDS: Aspirin 81 mg Enteric Coated Tablet PO SCH ×2 (11:43→21:04)
[2021-07-12] MEDS: Multivitamin W/ Minerals 1 TAB PO SCH (11:44)
[2021-07-12] MEDS: Senokot S 8.6-50 MG TAB PO SCH ×2 (11:45→20:00)
[2021-07-12] MEDS ORDERED: CEFAZOLIN 2 GM in Sodium Chloride 0.9% 100 ML IVPB SCH (14:00)
[2021-07-12] MEDS: Ketorolac Tromethamine 30 MG/ML VIAL IVP SCH ×2 (14:57→21:04)
[2021-07-12] MEDS: diphenhydrAMINE 50 MG/ML VIAL IVP PRN (15:18)
[2021-07-12] MEDS: CEFAZOLIN 2 GM, IV Admixture Fee-Chemo 1 UNITS in Sodium Chloride 0.9% 100 ML IVPB SCH ×2 (16:10→23:46)
[2021-07-12] MEDS ORDERED: Vancomycin HCl 1.5 GM in Sodium Chloride 0.9% 250 ML 300 ML IVPB SCH (18:00)
[2021-07-12] MEDS ORDERED: ceFAZolin Sodium/D5W 2 GM in Premix Bag 1 BAG IVPB SCH (23:00)
[2021-07-13] MEDS: fentaNYL Citrate/PF 500 MCG, Bupivacaine 10 ML in Sodium Chloride 0.9% 80 ML EPIDURAL SCH ×2 (03:43→20:20)
[2021-07-13] MEDS: diphenhydrAMINE 50 MG/ML VIAL IVP PRN ×2 (03:53→08:43)
[2021-07-13] MEDS: Dextrose 5 %-0.45 % NaCl 1,000 ML IV SCH ×2 (04:29→15:03)
[2021-07-13] MEDS: Ketorolac Tromethamine 30 MG/ML VIAL IVP SCH ×3 (06:10→23:02)
[2021-07-13 06:26] LABS: Mean Corpuscular Hemoglobin 29.8 pg (27.0-31.0); Mean Corpuscular Volume 90.2 fL (78.0-98.0); Mean Platelet Volume 7.4 fL (7.4-10.4); Platelet Count 232 thou/uL (130-400); RBC Distribution Width 14.3 % (11.5-14.5); Red Blood Cell (RBC) Count 4.05 mill/uL (4.70-6.10); White Blood Cell (WBC) Count 10.4 thou/uL (4.8-10.8)
[2021-07-13] MEDS: Terbinafine 250 MG TAB PO SCH (08:35)
[2021-07-13] MEDS: Senokot S 8.6-50 MG TAB PO SCH ×2 (08:35→20:24)
[2021-07-13] MEDS: Aspirin 81 mg Enteric Coated Tablet PO SCH ×2 (08:35→20:24)
[2021-07-13] MEDS: Multivitamin W/ Minerals 1 TAB PO SCH (08:36)
[2021-07-13] MEDS: Ferrous Gluconate 324 MG TAB PO SCH ×2 (08:36→20:24)
[2021-07-13] MEDS: Tamsulosin HCl 0.4 MG CAP PO SCH (08:36)
[2021-07-14] MEDS: Dextrose 5 %-0.45 % NaCl 1,000 ML IV SCH ×2 (05:29→12:35)
[2021-07-14] MEDS: Ketorolac Tromethamine 30 MG/ML VIAL IVP SCH ×2 (05:30→16:21)
[2021-07-14 06:03] LABS: Hemoglobin 11.9 g/dL (14.0-18.0); Mean Corpuscular HGB CONC 32.1 g/dL (32.0-36.0); Mean Corpuscular Hemoglobin 29.2 pg (27.0-31.0); Mean Platelet Volume 7.4 fL (7.4-10.4); Platelet Count 220 thou/uL (130-400); RBC Distribution Width 14.6 % (11.5-14.5); Red Blood Cell (RBC) Count 4.07 mill/uL (4.70-6.10); White Blood Cell (WBC) Count 9.3 thou/uL (4.8-10.8)
[2021-07-14] MEDS ORDERED: HYDROcodone/Acetaminophen 10/325 mg Tablet PO PRN ×2 (09:03)
[2021-07-14] MEDS: Ferrous Gluconate 324 MG TAB PO SCH (09:16)
[2021-07-14] MEDS: Tamsulosin HCl 0.4 MG CAP PO SCH (09:16)
[2021-07-14] MEDS: Senokot S 8.6-50 MG TAB PO SCH (09:16)
[2021-07-14] MEDS: Terbinafine 250 MG TAB PO SCH (09:16)
[2021-07-14] MEDS: Multivitamin W/ Minerals 1 TAB PO SCH (09:16)
[2021-07-14] MEDS: Aspirin 81 mg Enteric Coated Tablet PO SCH (09:16)
[2021-07-14 15:36] VITALS: BP 119/74; TEMP 98.6
[2021-07-14 17:13] VITALS: BMI 275809.7
[2021-07-14] MEDS ORDERED: Ibuprofen 600 MG TAB PO PRN (22:00)
== END 2021-07-14 16:05 | disposition home health service (06) | DRG 470 ==
LOC: SDC 05:32 → SURG B 07:23 → EDSTATUS 07:30
PROVIDERS: ADMIT Orthopaedic Surgery; ATTEND Orthopaedic Surgery
PROC: 0SR903Z Replacement of Right Hip Joint with Ceramic Synthetic Substitute, Open Approach (ICD-10-PCS; principal; 2021-07-12)
DX: M16.11 Unilateral primary osteoarthritis, right hip (principal)
CPT/HCPCS: 36415; 72170; 85027; C1776; J0690; J1100; J1200; J1885; J2001; J2250; J2405; J2704; J3010; J3370; J3490; J7050; S0020; S0028

== ENCOUNTER 2024-07-13 08:56 | Outpatient (CLI) | payer MEDICARE ==
[2024-07-13 10:50] LABS: #Basophils 0.05 10x3/uL (0.0-0.2); %Basophils 0.7 % (0.0-1.0); %Eosinophils 2.3 % (0.0-10.0); %Lymphocytes 15.8 % (21.0-51.0); %Monocytes 14.2 % (0.0-10.0); %Neutrophils 66.7 % (42.0-75.0); Hematocrit 46.3 % (42.0-52.0); Hemoglobin 15.3 g/dL (14.0-18.0); Mean Corpuscular Volume 87.7 fL (78.0-98.0); Platelet Count 253 10x3/uL (130-400); RBC Distribution Width 15.7 % (11.5-14.5); Red Blood Cell (RBC) Count 5.28 mill/uL (4.70-6.10)
[2024-07-13 11:12] LABS: INR-International Normal Ratio 0.9; Prothrombin Time 12.1 sec (12.0-14.7)
[2024-07-13 12:04] LABS: Anion Gap 14 mmol/L (10-20); BUN (Urea Nitrogen) 17 mg/dL (8.4-25.7); Calc. Creatinine Clearance 0 mL/min (70-130); Calcium 9.2 mg/dL (7.8-10.44); Carbon Dioxide 24 mmol/L (23-31); Chloride 103 mmol/L (98-107); Estimated GFR 99; Glucose 111 mg/dL (80-115); Potassium 4.3 mmol/L (3.5-5.1); Sodium 137 mmol/L (136-145)
== END 2024-07-13 08:57 | disposition home or self-care (01) ==
LOC: LABBT 08:56
PROVIDERS: ATTEND Orthopaedic Surgery
DX: Z01.818 Encounter for other preprocedural examination (principal); M87.052 Idiopathic aseptic necrosis of left femur; I49.8 Other specified cardiac arrhythmias
CPT/HCPCS: 80048; 85025; 85610; 87081; 93005; 93010

== ENCOUNTER 2024-07-15 07:16 | Observation (INO) | payer MEDICARE ==
[2024-07-15] MEDS ORDERED: Vancomycin (BATCH) 1.5 GM/300 ML BAG ONE (08:16)
[2024-07-15] MEDS ORDERED: Tranexamic Acid 1,000 MG/10 ML VIAL ONE (08:16)
[2024-07-15] MEDS ORDERED: Sodium Chloride 0.9% 0 ML ONE (08:16)
[2024-07-15] MEDS ORDERED: Lidocaine 1.5% w/Epi 1:200K 30 ML VIAL (Epid Use) ONE (09:01)
[2024-07-15] MEDS ORDERED: Naloxone HCl 0.4 mg/ml Vial IVP PRN (09:30)
[2024-07-15] MEDS ORDERED: HYDROcodone/Acetaminophen 5/325 mg Tablet PO PRN ×2 (09:30)
[2024-07-15] MEDS ORDERED: Promethazine HCl 25 MG/ML VIAL IM PRN ×2 (09:30→11:52)
[2024-07-15] MEDS ORDERED: diphenhydrAMINE 50 MG/ML VIAL IVP PRN (09:30)
[2024-07-15] MEDS ORDERED: Promethazine HCl 25 MG SUPP PR PRN (09:30)
[2024-07-15] MEDS ORDERED: Ondansetron PF 4 MG/2 ML Vial IVP PRN (09:30)
[2024-07-15] MEDS ORDERED: Bupivacaine 0.25% 10 ML VIAL EPIDURAL PRN (09:30)
[2024-07-15] MEDS ORDERED: diphenhydrAMINE 25 MG CAP PO PRN (09:30)
[2024-07-15] MEDS ORDERED: diphenhydrAMINE 50 MG/ML VIAL IM PRN (09:30)
[2024-07-15] MEDS ORDERED: Moisturizing Cream (Eucerin) 113 GM JAR TOP PRN (09:30)
[2024-07-15] MEDS ORDERED: traMADol HCl 50 MG TAB PO PRN (09:30)
[2024-07-15] MEDS ORDERED: Naloxone HCl 0.4 mg/ml Vial IV PRN (09:30)
[2024-07-15] MEDS ORDERED: Tamsulosin HCl 0.4 MG CAP ONE (09:44)
[2024-07-15] MEDS ORDERED: CEFAZOLIN 2 GM VIAL ONE ×2 (09:55→17:05)
[2024-07-15] MEDS ORDERED: Ondansetron PF 4 MG/2 ML Vial ONE (10:05)
[2024-07-15] MEDS ORDERED: Lidocaine 1% PF 5 ML VIAL ONE (10:05)
[2024-07-15] MEDS ORDERED: PROPOFOL 20 ML ONE ×2 (10:05→11:35)
[2024-07-15] MEDS ORDERED: Rocuronium Bromide 10 MG/ML (10ML VIAL) ONE (10:05)
[2024-07-15] MEDS ORDERED: fentaNYL PF 100 MCG/2 ML SYRINGE ONE ×2 (10:05→11:32)
[2024-07-15] MEDS ORDERED: ePHEDrine Sulfate 50 MG/10 ML VIAL ONE (10:33)
[2024-07-15] MEDS ORDERED: Glycopyrrolate 0.2 MG/ML 5 ML SYRINGE ONE (10:34)
[2024-07-15] MEDS ORDERED: PHENYLEPHRINE-NS 100 MCG/ML 10 ML SYRINGE ONE (10:34)
[2024-07-15] MEDS ORDERED: SUGAMMADEX SODIUM 200 MG/2 ML VIAL ONE (11:23)
[2024-07-15] MEDS ORDERED: Ondansetron HCl/PF 4 MG/2 ML Vial IVP PRN (11:52)
[2024-07-15] MEDS ORDERED: Zolpidem Tartrate 5 MG TAB PO PRN (14:13)
[2024-07-15] MEDS ORDERED: Acetaminophen 325 MG TAB PO PRN (14:13)
[2024-07-15] MEDS ORDERED: Sodium Chloride 0.9% 100 ML ONE (17:06)
[2024-07-15] MEDS: Ketorolac Tromethamine 30 MG (1 mL) VIAL IVP SCH (20:29)
[2024-07-15] MEDS: Sodium Chloride 0.9% 1,000 ML IV SCH (20:30)
[2024-07-15] MEDS: CEFAZOLIN 2 GM in Sodium Chloride 0.9% 100 ML IVPB SCH (20:45)
[2024-07-15] MEDS: Aspirin 81 mg Enteric Coated Tablet PO SCH (20:45)
[2024-07-15 22:22] VITALS: BMI 26.6
[2024-07-16] MEDS: FENTANYL 500 MCG/10 ML VIAL 500 MCG, Bupivacaine 0.75% 10 ML in Sodium Chloride 0.9% 80 ML EPIDURAL SCH (04:26)
[2024-07-16 06:02] LABS: Hematocrit 35.6 % (42.0-52.0); Hemoglobin 11.6 g/dL (14.0-18.0); Mean Corpuscular HGB CONC 32.6 g/dL (32.0-36.0); Mean Corpuscular Hemoglobin 28.9 pg (27.0-31.0); Mean Corpuscular Volume 88.8 fL (78.0-98.0); Mean Platelet Volume 10.1 fL (7.4-10.4); Platelet Count 197 10x3/uL (130-400); RBC Distribution Width 16.1 % (11.5-14.5); Red Blood Cell (RBC) Count 4.01 mill/uL (4.70-6.10)
[2024-07-16] MEDS: Tamsulosin HCl 0.4 MG CAP PO SCH (08:50)
[2024-07-16] MEDS: Senokot S 8.6-50 MG TAB PO SCH (08:50)
[2024-07-16] MEDS: Multivitamin W/ Minerals 1 TAB PO SCH (08:50)
[2024-07-16] MEDS: Ferrous Gluconate 324 MG TAB PO SCH (08:50)
[2024-07-16 09:47] VITALS: BP 122/69; TEMP 97.8
[2024-07-16] MEDS: traMADol HCl 50 MG TAB PO PRN (12:26)
[2024-07-16] MEDS ORDERED: HYDROcodone/Acetaminophen 10/325 mg Tablet PO PRN (12:43)
[2024-07-16] MEDS: HYDROcodone/Acetaminophen 10/325 mg Tablet PO PRN (13:22)
== END 2024-07-16 14:10 | disposition home or self-care (01) ==
LOC: SDC 07:16 → SURG B 17:43
PROVIDERS: ADMIT Orthopaedic Surgery; ATTEND Orthopaedic Surgery
PROC: 0SRB0JZ Replacement of Left Hip Joint with Synthetic Substitute, Open Approach (ICD-10-PCS; principal; 2024-07-15)
DX: M87.052 Idiopathic aseptic necrosis of left femur (principal); Z87.438 Personal history of other diseases of male genital organs; K21.9 Gastro-esophageal reflux disease without esophagitis; Z98.890 Other specified postprocedural states; Z98.52 Vasectomy status; Z79.899 Other long term (current) drug therapy; Z79.82 Long term (current) use of aspirin; Z96.641 Presence of right artificial hip joint; M16.12 Unilateral primary osteoarthritis, left hip
CPT/HCPCS: 27130; 64520; 85027; 97110; 97116 ×2; 97530; 97535; C1713; C1776; J1885; J2405; J2704; J3010 ×2; J3370; J3490 ×2; 36415

== ENCOUNTER 2024-09-17 13:09 | Outpatient (CLI) | payer MEDICARE | END 2024-09-17 13:10 | disposition home or self-care (01) | LOC: CT 13:09 | PROVIDERS: ATTEND Orthopaedic Surgery | DX: Z47.1 Aftercare following joint replacement surgery (principal); Z96.642 Presence of left artificial hip joint; R60.0 Localized edema | CPT/HCPCS: 72192 ==